=== PATIENT | male | born 1975 | race Caucasian/White ===

== ENCOUNTER 2019-03-01 08:54 | Emergency (ER) | payer MEDICAID ==
[~2019-03-01] VITALS: Ht 188 cm; Wt 134.0 kg
[2019-03-01 11:30] VITALS: BP 130/86
== END 2019-03-01 11:36 | disposition home or self-care (01) ==
LOC: ED 11:30
DX: K57.32 Diverticulitis of large intestine without perforation or abscess without bleeding (principal); Z87.891 Personal history of nicotine dependence
CPT/HCPCS: 36415; 74176; 80048; 81001; 82040; 85025; 96365; 99284